=== PATIENT | male | born 1960 | race Caucasian/White ===

== ENCOUNTER 2024-08-21 12:53 | Emergency (ER) | payer OTHER ==
[2024-08-21] MEDS ORDERED: Sodium Chloride 0.9% 10 ML Syringe FLUSH PRN (13:22)
[2024-08-21 13:54] LABS: BASOPHILS PERCENT AUTO 0.2 % (0.2-1.2); HEMATOCRIT 28.5 % (40.0-52.0); HEMOGLOBIN 9.7 g/dL (14.0-18.0); IMMATURE GRAN ABSOLUTE AUTO 0.05 x10^3/uL (0.00-0.07); LYMPHOCYTES ABSOLUTE AUTO 0.9 x10^3/uL (1.0-4.8); LYMPHOCYTES PERCENT AUTO 5.9 % (25.0-50.0); MEAN CORPUSCULAR HEMOGLOBIN 32.2 pg (26.0-32.0); MEAN CORPUSCULAR VOLUME 94.7 fL (78.0-93.0); MONOCYTES PERCENT AUTO 13.6 % (2.0-11.0); NEUTROPHILS ABSOLUTE AUTO 11.6 x10^3/uL (1.8-7.7); RED BLOOD CELL COUNT 3.01 x10^6/uL (4.5-6.0); WHITE BLOOD CELL COUNT,WBC 14.5 x10^3/uL (4.0-10.0)
[2024-08-21 14:18] LABS: APPEARANCE,URINE CLEAR (CLEAR); BILIRUBIN,URINE SMALL (NEGATIVE); COLOR,URINE AMBER (YELLOW); GLUCOSE,URINE NEGATIVE (NEGATIVE); KETONES,URINE TRACE mg/dL (NEGATIVE); LEUKOCYTE ESTERASE,URINE NEGATIVE (NEGATIVE); NITRITE,URINE NEGATIVE (NEGATIVE); OCCULT BLOOD,URINE NEGATIVE (NEGATIVE); PH,URINE 5.5 (5.0-8.0); PROTEIN,URINE 100 mg/dL (NEGATIVE); UROBILINOGEN,URINE 0.2 EU/dL (0.2)
[2024-08-21 14:20] LABS: PLATELET COUNT,PLT 529 x10^3/uL (130-400)
[2024-08-21 14:21] LABS: BACTERIA,URINE OCCASIONAL /HPF (NOT SEEN); RBC,URINE 0-5 /HPF (NOT SEEN); WBC,URINE 0-5 /HPF (NOT SEEN)
[2024-08-21 14:22] LABS: INR 1.3 (0.9-1.1); PROTHROMBIN TIME 12.7 SEC (8.9-11.5); PTT,PARTIAL THROMBOPLSTIN TIME 37.3 SEC (21.9-33.8)
[2024-08-21 14:22] LABS: MUCUS,URINE OCCASIONAL /LPF (NOT SEEN)
[2024-08-21 14:26] LABS: LACTIC ACID 1.6 mmol/L (0.4-2.0)
[2024-08-21 14:50] LABS: A/G RATIO 0.53; ALANINE AMINOTRANSFERASE,ALT 15 U/L (16-63); ALBUMIN 2.4 g/dL (3.4-5.0); ALKALINE PHOSPHATASE 123 U/L (46-116); ANION GAP 14.9 mmol/L (5-15); ASPARTATE AMNIOTRANSFERASE,AST 42 U/L (15-37); BILIRUBIN TOTAL 0.8 mg/dL (0.2-1.0); BLOOD UREA NITROGEN,BUN 18 mg/dL (7-18); C-REACTIVE PROTEIN 18.91 mg/dL (<=0.50); CALCIUM 8.9 mg/dL (8.5-10.1); CARBON DIOXIDE,CO2 23 mmol/L (21-32); CHLORIDE,CL 104 mmol/L (98-107); CREATININE 1.8 mg/dL (0.70-1.30); EST CRCL DRUG DOSING (CG) 41.68 mL/min; ESTIMATED GFR 41 mL/min (>=60); GLUCOSE RANDOM 173 mg/dL (70-99); MAGNESIUM 1.7 mg/dL (1.8-2.4); POTASSIUM,K 3.9 mmol/L (3.5-5.1); PROTEIN TOTAL,TP 6.9 g/dL (6.4-8.2); SODIUM,NA 138 mmol/L (136-145)
[2024-08-21 14:51] LABS: ETHANOL BLOOD MEDICAL < 3 mg/dL (0-3)
[2024-08-21 15:09] LABS: TSH ULTRASENSITIVE 0.494 uIU/mL (0.358-3.74)
[2024-08-21] MEDS: cefTRIAXone 1 GM Vial IVPUSH ONE (16:00)
[2024-08-21] MEDS: Doxycycline Monohydrate 100 MG Cap PO ONE (18:47)
== END 2024-08-21 19:10 | disposition home or self-care (01) ==
LOC: VM.ED 12:53 → UNMERGE 12:53 → EDUNIT# 12:53 → MERGE 12:53 → VM.ED 19:10
DX: J18.9 Pneumonia, unspecified organism (principal); Z79.899 Other long term (current) drug therapy; Z88.0 Allergy status to penicillin
CPT/HCPCS: 36415; 70450; 71045; 73130-RT; 80053; 80307; 81001; 83605; 83735; 84443; 84484; 85025; 85610; 85730; 86140; 87040; 87428-QW; 93005; 93010; 96374; 99284; 99285-25; A9270-GY; J0696

== ENCOUNTER 2024-09-19 11:27 | Emergency (ER) | payer MEDICARE, OTHER ==
[2024-09-19 12:07] LABS: BASOPHILS PERCENT AUTO 0.4 % (0.2-1.2); EOSINOPHILS ABSOLUTE AUTO 0.2 x10^3/uL (0.0-0.5); HEMATOCRIT 22.4 % (40.0-52.0); HEMOGLOBIN 7.4 g/dL (14.0-18.0); IMMATURE GRAN ABSOLUTE AUTO 0.04 x10^3/uL (0.00-0.07); LYMPHOCYTES ABSOLUTE AUTO 1.8 x10^3/uL (1.0-4.8); LYMPHOCYTES PERCENT AUTO 24.1 % (25.0-50.0); MEAN CORPUSCULAR HEMOGLOBIN 31.4 pg (26.0-32.0); MEAN CORPUSCULAR VOLUME 94.9 fL (78.0-93.0); MONOCYTES ABSOLUTE AUTO 1.1 x10^3/uL (0.0-0.8); MONOCYTES PERCENT AUTO 14.2 % (2.0-11.0); NEUTROPHILS ABSOLUTE AUTO 4.3 x10^3/uL (1.8-7.7); NEUTROPHILS PERCENT AUTO 58.8 % (50.0-80.0); PLATELET COUNT,PLT 427 x10^3/uL (130-400); RED BLOOD CELL COUNT 2.36 x10^6/uL (4.5-6.0); WHITE BLOOD CELL COUNT,WBC 7.4 x10^3/uL (4.0-10.0)
[2024-09-19 12:31] LABS: A/G RATIO 0.61; ALANINE AMINOTRANSFERASE,ALT 8 U/L (16-63); ALBUMIN 2.3 g/dL (3.4-5.0); ALKALINE PHOSPHATASE 92 U/L (46-116); ASPARTATE AMNIOTRANSFERASE,AST 12 U/L (15-37); BILIRUBIN TOTAL 0.2 mg/dL (0.2-1.0); BLOOD UREA NITROGEN,BUN 9 mg/dL (7-18); C-REACTIVE PROTEIN 5.97 mg/dL (<=0.50); CALCIUM 8.9 mg/dL (8.5-10.1); CARBON DIOXIDE,CO2 27 mmol/L (21-32); CHLORIDE,CL 102 mmol/L (98-107); CREATINE KINASE,CK 13 U/L (39-308); GLUCOSE RANDOM 111 mg/dL (70-99); POTASSIUM,K 3.6 mmol/L (3.5-5.1); PROTEIN TOTAL,TP 6.1 g/dL (6.4-8.2); SODIUM,NA 139 mmol/L (136-145)
[2024-09-19 12:34] LABS: ANION GAP 13.6 mmol/L (5-15); ESTIMATED GFR 83 mL/min (>=60)
== END 2024-09-19 13:31 | disposition home or self-care (01) ==
LOC: VM.ED 11:27
DX: R51.9 Headache, unspecified (principal); I10 Essential (primary) hypertension; Z79.899 Other long term (current) drug therapy; Z88.0 Allergy status to penicillin; Z87.820 Personal history of traumatic brain injury
CPT/HCPCS: 70450; 80053; 82550; 85025; 86140; 99284